=== PATIENT | female | born 1990 | race Caucasian/White ===

== ENCOUNTER 2016-05-28 07:56 | Emergency (ER) | payer OTHER ==
[~2016-05-28] VITALS: Ht 172.7 cm; Wt 77.6 kg
[~2016-05-28 07:56] MED LIST: AZAT50TA10 PO; CERT400K IM; COLE1TAB2 PO; HYDR-3138 PO; INFL100V IV; NORG1TAB6 PO; ONDA4TAB10 PO; OXYC1TAB9 PO; POTA25TA4 PO; PRED20TA PO; VIT B12 IM; [UNRECOGNIZED DRUG - OTHER] INJ
[2016-05-28 08:27] LABS: HEMOGLOBIN 13.2 g/dL (11.7-16.4)
[2016-05-28] MEDS ORDERED: SODIUM CHLORIDE 0.9% 1,000ML IVBOLUS ONE (08:30)
[2016-05-28] MEDS ORDERED: ONDANSETRON 2MG/ML, 2ML IVPush ONE (08:30)
[2016-05-28] MEDS ORDERED: ONDANSETRON 2MG/ML, 2ML ONE (08:35)
[2016-05-28] MEDS ORDERED: HYDROmorphone 1 MG/ML, 1ML ONE ×2 (08:35→09:12)
[2016-05-28] MEDS: HYDROmorphone 1 MG/ML, 1ML IVPush PRN ×2 (08:39→09:15)
[2016-05-28 08:40] LABS: ASPARTATE AMINO TRANSFERASE 18 U/L (15-37); BLOOD UREA NITROGEN 5 mg/dL (7-18)
[2016-05-28 11:19] VITALS: BP 105/66
== END 2016-05-28 11:22 | disposition home or self-care (01) ==
LOC: ED 08:23
DX: N12 Tubulo-interstitial nephritis, not specified as acute or chronic (principal); Z90.49 Acquired absence of other specified parts of digestive tract
CPT/HCPCS: 36415; 80053; 81001; 83690; 84703; 85025; 87086; 96361; 96374; 96375; 96376; 99285; J1170; J2405; J7030

== ENCOUNTER 2016-07-17 03:44 | Emergency (ER) | payer OTHER ==
[~2016-07-17] VITALS: Ht 172.7 cm; Wt 74.9 kg
[2016-07-17] MEDS ORDERED: ACET325T14 PO (04:04)
[2016-07-17] MEDS ORDERED: AMOX1TAB64 PO (04:04)
[2016-07-17] MEDS ORDERED: HYDROmorphone 1 MG/ML, 1ML IV STA (04:14)
[2016-07-17] MEDS ORDERED: HYDROmorphone 1 MG/ML, 1ML ONE (04:21)
[2016-07-17] MEDS ORDERED: ONDANSETRON 2MG/ML, 2ML ONE (04:22)
[2016-07-17] MEDS ORDERED: DEXAMETHASONE 4 MG/ML, 5ML ONE (04:22)
[2016-07-17] MEDS ORDERED: SODIUM CHLORIDE 0.9% 1,000ML IVBOLUS ONE ×2 (04:30→06:00)
[2016-07-17] MEDS ORDERED: DEXAMETHASONE 4 MG/ML, 1ML IV ONE (04:30)
[2016-07-17] MEDS ORDERED: ONDANSETRON 2MG/ML, 2ML IVPush ONE (04:30)
[2016-07-17] MEDS ORDERED: SODIUM CHLORIDE FLUSH 10ML SYR IVF ONE (04:30)
[2016-07-17 05:46] LABS: BLOOD UREA NITROGEN 6 mg/dL (7-18)
[2016-07-17] MEDS ORDERED: POTASSIUM CHLORIDE 20 MEQ TAB.ER.PRT ONE (05:54)
[2016-07-17] MEDS ORDERED: POTASSIUM CHLORIDE 20 MEQ TAB.ER.PRT PO ONE (06:00)
[2016-07-17 07:07] VITALS: BP 109/69
== END 2016-07-17 07:09 | disposition home or self-care (01) ==
LOC: ED 03:58
DX: M13.872 Other specified arthritis, left ankle and foot (principal); M13.871 Other specified arthritis, right ankle and foot; M13.862 Other specified arthritis, left knee; M13.861 Other specified arthritis, right knee; M13.832 Other specified arthritis, left wrist; M13.831 Other specified arthritis, right wrist; K50.90 Crohn's disease, unspecified, without complications
CPT/HCPCS: 36415; 80048; 82040; 85025; 85651; 96361; 96374; 96375; 99284; J1100; J1170; J2405; J7030

== ENCOUNTER 2016-08-06 20:54 | Emergency (ER) | payer OTHER ==
[~2016-08-06] VITALS: Ht 172.7 cm; Wt 75.9 kg
[~2016-08-06 20:54] MED LIST changes: +ACET325T14 PO; +AMOX1TAB64 PO
[2016-08-06] MEDS ORDERED: HYDROmorphone 1 MG/ML, 1ML IVPush PRN (21:00)
[2016-08-06] MEDS ORDERED: SODIUM CHLORIDE 0.9% 1,000ML IVBOLUS ONE (21:00)
[2016-08-06] MEDS ORDERED: SODIUM CHLORIDE FLUSH 10ML SYR IVF ONE (21:00)
[2016-08-06] MEDS ORDERED: ONDANSETRON 2MG/ML, 2ML IVPush ONE (21:00)
[2016-08-06 21:39] LABS: ASPARTATE AMINO TRANSFERASE 19 U/L (15-37); BLOOD UREA NITROGEN 10 mg/dL (7-18)
[2016-08-06] MEDS ORDERED: HYDROmorphone 1 MG/ML, 1ML ONE (22:07)
[2016-08-06] MEDS ORDERED: ONDANSETRON 2MG/ML, 2ML ONE (22:07)
[2016-08-06 22:51] VITALS: BP 120/82
== END 2016-08-06 22:55 | disposition home or self-care (01) ==
LOC: ED 21:35
DX: R10.13 Epigastric pain (principal); K58.9 Irritable bowel syndrome, unspecified; Z88.6 Allergy status to analgesic agent; Z88.2 Allergy status to sulfonamides; Z90.49 Acquired absence of other specified parts of digestive tract
CPT/HCPCS: 36415; 74020; 80053; 81001; 83690; 84703; 85025; 87086; 96361; 96374; 96375; 99285; J1170; J2405; J7030

== ENCOUNTER 2016-11-07 03:55 | Emergency (ER) | payer OTHER ==
[~2016-11-07] VITALS: Ht 172.7 cm; Wt 76.4 kg
[~2016-11-07 03:55] MED LIST changes: -AZAT50TA10 PO; +AZAT50TA20 PO; -HYDR-3138 PO; +HYDR-3237 PO
[2016-11-07] MEDS ORDERED: HYDROmorphone 1 MG/ML, 1ML IM ONE (05:00)
[2016-11-07] MEDS ORDERED: HYDROmorphone 1 MG/ML, 1ML ONE (05:19)
[2016-11-07 05:25] VITALS: BP 122/81
== END 2016-11-07 06:00 | disposition home or self-care (01) ==
LOC: ED 05:54
DX: M13.0 Polyarthritis, unspecified (principal); M25.531 Pain in right wrist; M25.561 Pain in right knee; M25.571 Pain in right ankle and joints of right foot
CPT/HCPCS: 96372; 99283; J1170

== ENCOUNTER 2016-11-12 06:54 | Emergency (ER) | payer OTHER ==
[~2016-11-12] VITALS: Ht 172.7 cm; Wt 73.0 kg
[2016-11-12] MEDS ORDERED: SODIUM CHLORIDE FLUSH 10ML SYR IVF ONE (07:30)
[2016-11-12] MEDS ORDERED: SODIUM CHLORIDE 0.9% 1,000ML IVBOLUS ONE (07:30)
[2016-11-12] MEDS ORDERED: ONDANSETRON 2MG/ML, 2ML IVPush ONE (07:30)
[2016-11-12] MEDS ORDERED: OXYC-302 PO (07:40)
[2016-11-12] MEDS ORDERED: PRED1TAB PO (07:41)
[2016-11-12] MEDS ORDERED: ONDANSETRON 2MG/ML, 2ML ONE (07:44)
[2016-11-12] MEDS ORDERED: HYDROmorphone 2 MG/ML, 1ML ONE (07:44)
[2016-11-12] MEDS: HYDROmorphone 1 MG/ML, 1ML IVPush PRN ×2 (07:52→08:12)
[2016-11-12 07:55] LABS: HEMATOCRIT 35.8 % (34.6-47.8); HEMOGLOBIN 12.1 g/dL (11.7-16.4)
[2016-11-12 08:06] LABS: BLOOD UREA NITROGEN 10 mg/dL (7-18)
[2016-11-12 09:42] VITALS: BP 113/74
== END 2016-11-12 09:44 | disposition home or self-care (01) ==
LOC: ED 08:07
DX: N30.01 Acute cystitis with hematuria (principal)
CPT/HCPCS: 36415; 80048; 81001; 82040; 84703; 85025; 87077; 87086; 87186; 96361; 96374; 96375; 99285; J1170; J2405; J7030

== ENCOUNTER 2016-11-25 08:07 | Emergency (ER) | payer OTHER ==
[~2016-11-25] VITALS: Ht 172.7 cm; Wt 70.9 kg
[~2016-11-25 08:07] MED LIST changes: +OXYC-302 PO; +PRED1TAB PO
[2016-11-25] MEDS ORDERED: HYDROmorphone 1 MG/ML, 1ML ONE ×3 (08:55→11:21)
[2016-11-25] MEDS ORDERED: ONDANSETRON 2MG/ML, 2ML ONE ×2 (08:55→10:05)
[2016-11-25] MEDS ORDERED: SODIUM CHLORIDE 0.9% 1,000ML IVBOLUS ONE (09:00)
[2016-11-25] MEDS ORDERED: ONDANSETRON 2MG/ML, 2ML IVPush ONE ×2 (09:00→10:30)
[2016-11-25] MEDS ORDERED: SODIUM CHLORIDE FLUSH 10ML SYR IVF ONE (09:00)
[2016-11-25 09:13] LABS: HEMOGLOBIN 12.9 g/dL (11.7-16.4); WHITE BLOOD COUNT 12.1 x10^3/uL (3.4-10)
[2016-11-25 09:14] LABS: BLOOD UREA NITROGEN 6 mg/dL (7-18)
[2016-11-25] MEDS: HYDROmorphone 1 MG/ML, 1ML IVPush PRN ×2 (09:16→10:10)
[2016-11-25] MEDS ORDERED: POTASSIUM CHLORIDE 10% 40 MEQ/30 ML UDC PO ONE (09:30)
[2016-11-25] MEDS ORDERED: ONDA4TAB7 PO (09:48)
[2016-11-25] MEDS ORDERED: POTASSIUM CHLORIDE 10% 20 MEQ/15 ML UDC ONE (10:08)
[2016-11-25 11:08] VITALS: BP 113/60
== END 2016-11-25 11:10 | disposition home or self-care (01) ==
LOC: ED 09:05
DX: K50.00 Crohn's disease of small intestine without complications (principal); E86.0 Dehydration; E87.6 Hypokalemia; G89.29 Other chronic pain; Z90.49 Acquired absence of other specified parts of digestive tract
CPT/HCPCS: 36415; 74022; 80048; 82040; 83605; 84703; 85025; 96361; 96374; 96375; 96376; 99285; J1170; J2405; J7030

== ENCOUNTER 2017-01-15 19:43 | Inpatient (IN) | payer OTHER ==
[~2017-01-15] VITALS: Ht 167.6 cm; Wt 74.3 kg
[~2017-01-15 19:43] MED LIST changes: +ONDA4TAB7 PO
[2017-01-15 20:20] LABS: HEMATOCRIT 37.7 % (34.6-47.8); HEMOGLOBIN 12.7 g/dL (11.7-16.4); WHITE BLOOD COUNT 18.7 x10^3/uL (3.4-10)
[2017-01-15 20:26] LABS: ASPARTATE AMINO TRANSFERASE 34 U/L (15-37); BLOOD UREA NITROGEN 5 mg/dL (7-18)
[2017-01-15] MEDS ORDERED: ONDANSETRON 2MG/ML, 2ML ONE (20:26)
[2017-01-15] MEDS ORDERED: HYDROmorphone 1 MG/ML, 1ML ONE ×2 (20:26→21:19)
[2017-01-15] MEDS ORDERED: SODIUM CHLORIDE 0.9% 1,000ML IVBOLUS ONE (20:30)
[2017-01-15] MEDS ORDERED: ONDANSETRON 2MG/ML, 2ML IVPush ONE (20:30)
[2017-01-15] MEDS ORDERED: SODIUM CHLORIDE FLUSH 10ML SYR IVF ONE (20:30)
[2017-01-15 20:37] LABS: PATH.CAST-FLAG NOT PRESENT; SPERM-FLAG NOT PRESENT; SRC-FLAG NOT PRESENT; XTAL-FLAG NOT PRESENT; YLC-FLAG NOT PRESENT
[2017-01-15] MEDS: HYDROmorphone 1 MG/ML, 1ML IVPush PRN ×2 (20:37→21:25)
[2017-01-15 20:38] LABS: DIFF TOTAL CELLS COUNTED 100 CELL DIFF; VERIFY COUNTS? YES
[2017-01-15] MEDS ORDERED: ACETAMINOPHEN 325 MG TABLET PO PRN (22:30)
[2017-01-15] MEDS ORDERED: HYDROmorphone 2 MG/ML, 1ML ONE (22:34)
[2017-01-15] MEDS: HYDROmorphone 2 MG/ML, 1ML IVPush PRN (22:38)
[2017-01-15 22:58] VITALS: BP 128/80
[2017-01-15] MEDS ORDERED: POTASSIUM CHLORIDE 20 MEQ in SODIUM CHLORIDE 0.9% 1,000 ML IV SCH (23:00)
[2017-01-15] MEDS ORDERED: INFL100V IV (23:01)
[2017-01-15] MEDS: OXYcodone/APAP 5/325MG TABLET PO PRN (23:05)
[2017-01-15] MEDS: CEFTRIAXONE PMX 1GM/50ML 50 ML IV SCH (23:31)
[2017-01-16] MEDS: METRONIDAZOLE PMX 500MG/100ML 100 ML IV SCH ×4 (00:25→23:12)
[2017-01-16 00:50] VITALS: BP 108/72
[2017-01-16] MEDS: ONDANSETRON 2MG/ML, 2ML IVPush PRN ×2 (04:16→11:04)
[2017-01-16] MEDS: HYDROmorphone 2 MG/ML, 1ML IVPush PRN ×5 (04:16→23:19)
[2017-01-16 05:07] LABS: HEMATOCRIT 29.8 % (34.6-47.8); HEMOGLOBIN 10.2 g/dL (11.7-16.4); WHITE BLOOD COUNT 10.3 x10^3/uL (3.4-10)
[2017-01-16 05:46] LABS: BLOOD UREA NITROGEN 4 mg/dL (7-18)
[2017-01-16 08:05] VITALS: BP 102/65
[2017-01-16] MEDS: FAMOTIDINE 20 MG TABLET PO SCH ×2 (08:39→21:33)
[2017-01-16] MEDS ORDERED: methylPREDNISolone SOD SUCC 125 MG/2 ML IV ONE (11:00)
[2017-01-16] MEDS ORDERED: OMNIPAQUE 350 MG/ML, 100ML BOTTLE ONE (12:45)
[2017-01-16 13:49] VITALS: BP 122/79
[2017-01-16] MEDS ORDERED: METOCLOPRAMIDE 5 MG/ML, 2ML IVPush PRN (14:00)
[2017-01-16] MEDS: POTASSIUM CHLORIDE 20 MEQ in SODIUM CHLORIDE 0.9% 1,000 ML IV SCH (14:34)
[2017-01-16 19:30] VITALS: BP 115/60
[2017-01-16] MEDS: OXYcodone/APAP 5/325MG TABLET PO PRN (21:33)
[2017-01-16] MEDS: CEFTRIAXONE PMX 1GM/50ML 50 ML IV SCH (22:26)
[2017-01-17 02:35] VITALS: BP 115/72
[2017-01-17 05:00] LABS: HEMATOCRIT 31.8 % (34.6-47.8); HEMOGLOBIN 10.8 g/dL (11.7-16.4); WHITE BLOOD COUNT 11.9 x10^3/uL (3.4-10)
[2017-01-17 05:02] LABS: BLOOD UREA NITROGEN 4 mg/dL (7-18)
[2017-01-17] MEDS: POTASSIUM CHLORIDE 20 MEQ in SODIUM CHLORIDE 0.9% 1,000 ML IV SCH (05:26)
[2017-01-17] MEDS: METRONIDAZOLE PMX 500MG/100ML 100 ML IV SCH ×2 (06:51→13:58)
[2017-01-17 07:14] VITALS: BP 119/77
[2017-01-17] MEDS: FAMOTIDINE 20 MG TABLET PO SCH (08:04)
[2017-01-17] MEDS: ONDANSETRON 2MG/ML, 2ML IVPush PRN (08:41)
[2017-01-17] MEDS: OXYcodone/APAP 5/325MG TABLET PO PRN ×2 (09:41→15:05)
[2017-01-17] MEDS ORDERED: PRED20TA PO (12:54)
[2017-01-17] MEDS ORDERED: AMOX1TAB64 PO (12:54)
[2017-01-17] MEDS ORDERED: CEFTRIAXONE PMX 1GM/50ML 50 ML IV ONE (13:00)
[2017-01-17 13:22] VITALS: BP 115/76
[2017-01-17 15:01] VITALS: BP 118/72
== END 2017-01-17 15:10 | disposition home or self-care (01) | DRG 872 ==
LOC: ED 21:44 → EDIP 21:49 → SUATTDRO 22:06 → 4NOR 22:50
PROVIDERS: ADMIT Emergency Medicine; ATTEND Hospitalist
DX: A41.9 Sepsis, unspecified organism (principal); E44.0 Moderate protein-calorie malnutrition; K50.90 Crohn's disease, unspecified, without complications; N30.90 Cystitis, unspecified without hematuria; G89.29 Other chronic pain; Z83.3 Family history of diabetes mellitus; Z90.49 Acquired absence of other specified parts of digestive tract; Z68.26 Body mass index [BMI] 26.0-26.9, adult; Z88.5 Allergy status to narcotic agent; Z88.2 Allergy status to sulfonamides; Z87.440 Personal history of urinary (tract) infections; Z90.89 Acquired absence of other organs
CPT/HCPCS: 36415; 74020; 74177; 80048; 80053; 81001; 82040; 83690; 83735; 85025; 87046; 87086; 87324; 87899; 89055; 96361; 96374; 96375; 96376; J0696; J1170; J2405; J3480; Q9967; J2765; J2930; J7030

== ENCOUNTER → 2017-02-16 | Outpatient (CLI) | payer OTHER ==
[~2017-02-16] MED LIST changes: +B12 INJECTION IM; +PRED10TA PO
== END ==
LOC: STAR 13:14
PROVIDERS: ATTEND Colon & Rectal Surgery
DX: Z02.9 Encounter for administrative examinations, unspecified (principal)

== ENCOUNTER 2017-02-25 09:20 | Inpatient (IN) | payer OTHER ==
[~2017-02-25] VITALS: Ht 172.7 cm; Wt 80.6 kg
[~2017-02-25 09:20] MED LIST changes: +BUPIVACAINE/PF 0.5% ONE
[2017-02-25] MEDS ORDERED: LACTATED RINGERS 1,000 ML IV SCH (09:30)
[2017-02-25] MEDS ORDERED: ROCURONIUM 10 MG/ML,10ML ONE (10:38)
[2017-02-25] MEDS ORDERED: PROPOFOL 10 MG/ML, 20ML ONE (10:38)
[2017-02-25] MEDS ORDERED: LIDOCAINE-MPF 2% ,5ML ONE (10:38)
[2017-02-25] MEDS ORDERED: MIDAZOLAM 1 MG/ML, 2ML ONE (10:39)
[2017-02-25] MEDS ORDERED: CEFOTETAN PMX 1GM/50ML 50 ML ONE (10:53)
[2017-02-25] MEDS ORDERED: FENTANYL PF 100 MCG/2ML ONE (10:59)
[2017-02-25] MEDS ORDERED: ACETAMINOPHEN 325 MG TABLET PO PRN ×2 (11:00→17:30)
[2017-02-25] MEDS ORDERED: FENTANYL PF 100 MCG/2ML IV PRN (11:00)
[2017-02-25] MEDS ORDERED: HYDROcodone/APAP 7.5-325MG/15ML UDC PO PRN (11:00)
[2017-02-25] MEDS ORDERED: ONDANSETRON 2MG/ML, 2ML IVPush PRN (11:00)
[2017-02-25] MEDS ORDERED: MEPERIDINE/PF 25MG/0.5ML IVPush PRN (11:00)
[2017-02-25] MEDS ORDERED: DEXAMETHASONE 4 MG/ML, 1ML ONE ×2 (11:09)
[2017-02-25] MEDS ORDERED: ONDANSETRON 2MG/ML, 2ML ONE (11:09)
[2017-02-25] MEDS ORDERED: BUPIVACAINE/PF-EPI 0.5% 1:200K INFIL ONE (11:10)
[2017-02-25] MEDS ORDERED: FENTANYL PF 250 MCG/5ML ONE (11:17)
[2017-02-25] MEDS ORDERED: THROMBIN 5,000 UNIT VIAL TP ONE ×2 (11:51→11:55)
[2017-02-25] MEDS ORDERED: GLYCOPYRROLATE 0.2MG/1ML, 5ML ONE (12:27)
[2017-02-25] MEDS ORDERED: NEOSTIGMINE 1 MG/ML, 10ML ONE (12:27)
[2017-02-25] MEDS: HYDROmorphone 1 MG/ML, 1ML IV PRN ×12 (13:00→22:28)
[2017-02-25] MEDS ORDERED: HYDROmorphone 2 MG/ML, 1ML ONE ×6 (13:01→22:23)
[2017-02-25] MEDS ORDERED: OXYcodone 5 MG/5 ML ORAL.SOL UDC ONE (13:17)
[2017-02-25] MEDS ORDERED: KETOROLAC 30 MG/1 ML ONE (13:26)
[2017-02-25] MEDS ORDERED: ACETAMINOPHEN 650 MG/20.3 ML UDC ONE (13:26)
[2017-02-25] MEDS ORDERED: KETOROLAC 30 MG/1 ML IV PRN (13:30)
[2017-02-25] MEDS ORDERED: OXYcodone 5 MG/5 ML ORAL.SOL UDC PO PRN (13:30)
[2017-02-25] MEDS ORDERED: PROMETHAZINE 25 MG/ML, 1ML ONE (14:22)
[2017-02-25] MEDS ORDERED: PROMETHAZINE 25 MG/ML, 1ML IV PRN (14:30)
[2017-02-25] MEDS ORDERED: LORazepam 2 MG/ML, 1ML IV PRN (16:00)
[2017-02-25] MEDS ORDERED: DIPHENHYDRAMINE 25 MG CAPSULE PO PRN (16:00)
[2017-02-25] MEDS ORDERED: DIPHENHYDRAMINE 50 MG/ML, 1ML IV PRN (16:00)
[2017-02-25] MEDS ORDERED: LORazepam 1MG TABLET PO PRN (16:00)
[2017-02-25] MEDS ORDERED: HYDROmorphone 1 MG/ML, 1ML IV PRN (16:00)
[2017-02-25] MEDS ORDERED: ACETAMINOPHEN 650 MG SUPP PR PRN (17:30)
[2017-02-25] MEDS: OXYcodone/APAP 5/325MG TABLET PO PRN (17:36)
[2017-02-25] MEDS: POTASSIUM CHLORIDE 20 MEQ in SODIUM CHLORIDE 0.9% 1,000 ML IV SCH (17:37)
[2017-02-25 19:06] VITALS: BP 107/76
[2017-02-25] MEDS: CEFOTETAN PMX 1GM/50ML 50 ML IVPB SCH (22:29)
[2017-02-25 23:50] VITALS: BP 117/82
[2017-02-26] MEDS ORDERED: HYDROmorphone 2 MG/ML, 1ML ONE ×6 (01:13→22:09)
[2017-02-26] MEDS: HYDROmorphone 1 MG/ML, 1ML IV PRN ×5 (01:16→22:12)
[2017-02-26 03:28] VITALS: BP 119/79
[2017-02-26] MEDS: KETOROLAC 30 MG/1 ML IV PRN ×3 (03:40→19:36)
[2017-02-26] MEDS: OXYcodone/APAP 5/325MG TABLET PO PRN ×2 (03:40→10:04)
[2017-02-26 06:11] LABS: BASOPHILS # (AUTO) 0.05 x10^3/uL (0-0.1); BASOPHILS % (AUTO) 0 % (0-1); EOSINOPHILS # (AUTO) 0.01 x10^3/uL (0-0.4); EOSINOPHILS % (AUTO) 0 % (1-7); LYMPHOCYTES # (AUTO) 1.79 x10^3/uL (1-3.4); LYMPHOCYTES % (AUTO) 13 % (22-44); MD NO; MEAN CORPUSCULAR HEMOGLOBIN 26.1 pg (27.0-34.8); MEAN CORPUSCULAR VOLUME 76.7 fL (80-100); MEAN PLATELET VOLUME 7.5 fL (7.4-10.4); MONOCYTES # (AUTO) 1.38 x10^3/uL (0.2-0.8); MONOCYTES % (AUTO) 10 % (2-9); NEUTROPHILS % (AUTO) 77 % (42-75); PLATELET COUNT 386 x10^3/uL (130-400); RED BLOOD COUNT 3.77 x10^6/uL (3.82-5.3); RED CELL DISTRIBUTION WIDTH 14.1 % (9.6-15.2)
[2017-02-26 06:22] LABS: ANION GAP 9 mmol/L (5-15); CHLORIDE 107 mmol/L (98-107); CREATININE 1.07 mg/dL (0.55-1.02)
[2017-02-26 06:24] LABS: CALCIUM 7.9 mg/dL (8.5-10.1)
[2017-02-26] MEDS: ENOXAPARIN 40 MG/0.4 ML SQ SCH (08:04)
[2017-02-26 08:19] VITALS: BP 101/63
[2017-02-26] MEDS: CEFOTETAN PMX 1GM/50ML 50 ML IVPB SCH (10:04)
[2017-02-26] MEDS ORDERED: MAGNESIUM SULFATE PMX 2GM/50ML 50 ML IVPB ONE (11:00)
[2017-02-26] MEDS ORDERED: POTASSIUM CHLORIDE 40 MEQ in SODIUM CHLORIDE 0.9% 500 ML IV SCH (11:00)
[2017-02-26] MEDS: ONDANSETRON 2MG/ML, 2ML IV PRN ×2 (12:17→22:12)
[2017-02-26 14:47] VITALS: BP 110/71
[2017-02-26] MEDS: POTASSIUM CHLORIDE 20 MEQ in SODIUM CHLORIDE 0.9% 1,000 ML IV SCH (16:39)
[2017-02-26] MEDS: OXYcodone/APAP 10/325MG TABLET PO PRN (19:36)
[2017-02-26 19:41] VITALS: BP 116/81
[2017-02-27] MEDS: OXYcodone/APAP 10/325MG TABLET PO PRN ×2 (04:13→12:30)
[2017-02-27] MEDS: KETOROLAC 30 MG/1 ML IV PRN ×2 (04:13→12:30)
[2017-02-27 04:18] VITALS: BP 110/64
[2017-02-27 05:48] LABS: ANION GAP 7 mmol/L (5-15); CALCIUM 7.7 mg/dL (8.5-10.1); CHLORIDE 109 mmol/L (98-107); CREATININE 0.87 mg/dL (0.55-1.02)
[2017-02-27 05:50] LABS: MEAN CORPUSCULAR HEMOGLOBIN 25.9 pg (27.0-34.8); MEAN CORPUSCULAR HGB CONC 33.8 g/dL (32.4-35.8); MEAN CORPUSCULAR VOLUME 76.7 fL (80-100); MEAN PLATELET VOLUME 7.5 fL (7.4-10.4); PLATELET COUNT 279 x10^3/uL (130-400); RED BLOOD COUNT 2.91 x10^6/uL (3.82-5.3); RED CELL DISTRIBUTION WIDTH 14.5 % (9.6-15.2)
[2017-02-27 06:18] LABS: MD YES
[2017-02-27 06:19] LABS: <PLATELET ESTIMATE> ADEQUATE; <PLT MORPHOLOGY> NORMAL PLT MORPH; BAND#(MANUAL) 0.22 x10^3/uL; BANDS%(MANUAL) 2 % (0-7); LYMPH#(MANUAL) 1.78 x10^3/uL (1-3.4); LYMPHS% (MANUAL) 16 % (22-44); METAMYELOCYTES# (MANUAL) 0.11 x10^3/uL (0-0); METAMYELOCYTES% (MANUAL) 1 % (0-1); MONOS#(MANUAL) 0.78 x10^3/uL (0.3-2.7); MONOS% (MANUAL) 7 % (2-9); SEG#(MANUAL) 8.21 x10^3/uL (1.8-6.8); SEGS% (MANUAL) 74 % (42-75)
[2017-02-27 06:20] LABS: MICROCYTOSIS 1+
[2017-02-27] MEDS ORDERED: HYDROmorphone 2 MG/ML, 1ML ONE (08:41)
[2017-02-27 08:50] VITALS: BP 121/67
[2017-02-27] MEDS: ENOXAPARIN 40 MG/0.4 ML SQ SCH (08:56)
[2017-02-27] MEDS: HYDROmorphone 1 MG/ML, 1ML IV PRN (08:56)
[2017-02-27] MEDS: ONDANSETRON 2MG/ML, 2ML IV PRN (09:48)
[2017-02-27 12:19] VITALS: BP 110/73
== END 2017-02-27 13:15 | disposition home or self-care (01) | DRG 331 ==
LOC: ORIP 09:20 → 4NOR 15:36
PROVIDERS: ADMIT Colon & Rectal Surgery; ATTEND Colon & Rectal Surgery
PROC: 0DTF0ZZ Resection of Right Large Intestine, Open Approach (ICD-10-PCS; principal; 2017-02-25 12:30)
DX: K50.90 Crohn's disease, unspecified, without complications (principal); E83.42 Hypomagnesemia; E87.6 Hypokalemia
CPT/HCPCS: 36415; 80048; 81025; 83735; 85025; 86850; 86900; 88307; J1100; J1170; J1650; J1885; J2250; J2405; J2550; J2704; J2710; J3010; J3480; J3490; J2060; J3475; J7030; J7040; J7120; S0074

== ENCOUNTER 2017-03-04 16:26 | Inpatient (IN) | payer OTHER ==
[~2017-03-04] VITALS: Ht 172.7 cm; Wt 74.8 kg
[~2017-03-04 16:26] MED LIST changes: -BUPIVACAINE/PF 0.5% ONE
[2017-03-04] MEDS ORDERED: ONDANSETRON 2MG/ML, 2ML ONE (16:51)
[2017-03-04] MEDS ORDERED: HYDROmorphone 2 MG/ML, 1ML ONE ×4 (16:51→22:21)
[2017-03-04] MEDS ORDERED: SODIUM CHLORIDE 0.9% 1,000ML IVBOLUS ONE (17:00)
[2017-03-04] MEDS ORDERED: SODIUM CHLORIDE FLUSH 10ML SYR IVF ONE (17:00)
[2017-03-04] MEDS ORDERED: ONDANSETRON 2MG/ML, 2ML IVPush ONE (17:00)
[2017-03-04] MEDS: HYDROmorphone 1 MG/ML, 1ML IVPush PRN ×2 (17:10→18:42)
[2017-03-04 17:16] LABS: BASOPHILS # (AUTO) 0.03 x10^3/uL (0-0.1); BASOPHILS % (AUTO) 0 % (0-1); EOSINOPHILS # (AUTO) 0.16 x10^3/uL (0-0.4); EOSINOPHILS % (AUTO) 2 % (1-7); LYMPHOCYTES % (AUTO) 16 % (22-44); MD NO; MEAN CORPUSCULAR HEMOGLOBIN 26.2 pg (27.0-34.8); MEAN CORPUSCULAR HGB CONC 33.5 g/dL (32.4-35.8); MEAN CORPUSCULAR VOLUME 78.3 fL (80-100); MEAN PLATELET VOLUME 7.6 fL (7.4-10.4); MONOCYTES # (AUTO) 0.69 x10^3/uL (0.2-0.8); MONOCYTES % (AUTO) 7 % (2-9); NEUTROPHILS # (AUTO) 7.63 x10^3/uL (1.8-6.8); NEUTROPHILS % (AUTO) 75 % (42-75); PLATELET COUNT 388 x10^3/uL (130-400); RED CELL DISTRIBUTION WIDTH 15.5 % (9.6-15.2)
[2017-03-04 17:19] LABS: ALANINE AMINOTRANSFERASE 17 U/L (12-78); ALBUMIN 2.8 g/dL (3.4-5.0); ANION GAP 7 mmol/L (5-15); CALCIUM 8.4 mg/dL (8.5-10.1); CHLORIDE 104 mmol/L (98-107); CREATININE 0.73 mg/dL (0.55-1.02)
[2017-03-04 17:23] LABS: ALKALINE PHOSPHATASE 107 U/L (45-117); BILIRUBIN,TOTAL 0.7 mg/dL (0.2-1.0)
[2017-03-04 17:27] LABS: CULTURE INDICATED? YES; MICROSCOPIC INDICATED
[2017-03-04] MEDS ORDERED: OMNIPAQUE 350 MG/ML, 100ML BOTTLE ONE (17:54)
[2017-03-04] MEDS ORDERED: CEFTRIAXONE PMX 1GM/50ML 50 ML ONE (18:23)
[2017-03-04] MEDS ORDERED: CEFTRIAXONE PMX 1GM/50ML 50 ML IV ONE (18:30)
[2017-03-04] MEDS ORDERED: POTASSIUM CHLORIDE 40 MEQ in SODIUM CHLORIDE 0.9% 500 ML IV ONE (18:30)
[2017-03-04 22:15] VITALS: BP 110/74
[2017-03-04] MEDS: OXYcodone/APAP 10/325MG TABLET PO PRN ×2 (23:22→23:51)
[2017-03-04] MEDS ORDERED: HYDROmorphone 1 MG/ML, 1ML IV PRN (23:30)
[2017-03-04] MEDS: D5%-0.9% NACL+KCL 20MEQ 1,000 ML IV SCH (23:51)
[2017-03-04] MEDS: PIPERACILLIN/TAZO/PMX 3.375GM 50 ML IV SCH (23:51)
[2017-03-05] MEDS: ONDANSETRON 2MG/ML, 2ML IV PRN ×3 (00:31→19:32)
[2017-03-05 00:35] VITALS: BP_SYST 106; BP_SYST 95; BP_DIAS 60; BP_DIAS 69
[2017-03-05] MEDS: OXYcodone/APAP 10/325MG TABLET PO PRN ×6 (03:58→21:45)
[2017-03-05 05:23] LABS: MEAN CORPUSCULAR HEMOGLOBIN 26.7 pg (27.0-34.8); MEAN CORPUSCULAR HGB CONC 33.9 g/dL (32.4-35.8); MEAN CORPUSCULAR VOLUME 78.7 fL (80-100); MEAN PLATELET VOLUME 7.3 fL (7.4-10.4); PLATELET COUNT 290 x10^3/uL (130-400); RED BLOOD COUNT 2.69 x10^6/uL (3.82-5.3); RED CELL DISTRIBUTION WIDTH 16.1 % (9.6-15.2)
[2017-03-05 05:30] LABS: ANION GAP 6 mmol/L (5-15); CALCIUM 7.5 mg/dL (8.5-10.1); CHLORIDE 109 mmol/L (98-107); CREATININE 0.69 mg/dL (0.55-1.02)
[2017-03-05] MEDS: PIPERACILLIN/TAZO/PMX 3.375GM 50 ML IV SCH ×2 (05:33→13:33)
[2017-03-05 05:57] LABS: BASOPHILS # (AUTO) 0.02 x10^3/uL (0-0.1); BASOPHILS % (AUTO) 0 % (0-1); EOSINOPHILS # (AUTO) 0.18 x10^3/uL (0-0.4); EOSINOPHILS % (AUTO) 3 % (1-7); LYMPHOCYTES # (AUTO) 1.64 x10^3/uL (1-3.4); LYMPHOCYTES % (AUTO) 25 % (22-44); MD SCAN; MONOCYTES # (AUTO) 0.65 x10^3/uL (0.2-0.8); MONOCYTES % (AUTO) 10 % (2-9); NEUTROPHILS # (AUTO) 4.19 x10^3/uL (1.8-6.8); NEUTROPHILS % (AUTO) 63 % (42-75)
[2017-03-05] MEDS ORDERED: HYDROmorphone 2 MG/ML, 1ML ONE (06:26)
[2017-03-05 06:30] VITALS: BP 107/69
[2017-03-05] MEDS ORDERED: MAGNESIUM SULFATE PMX 2GM/50ML 50 ML IV ONE (09:30)
[2017-03-05] MEDS ORDERED: POTASSIUM CHLORIDE 40 MEQ in SODIUM CHLORIDE 0.9% 500 ML IV ONE (09:30)
[2017-03-05] MEDS: D5%-0.9% NACL+KCL 20MEQ 1,000 ML IV SCH ×2 (12:50→23:47)
[2017-03-05 13:47] VITALS: BP 110/71
[2017-03-05 19:05] VITALS: BP 108/68
[2017-03-05] MEDS ORDERED: PIPERACILLIN/TAZO 3.375 GM in SODIUM CHLORIDE 0.9% 50 ML IV SCH (19:30)
[2017-03-06 01:21] VITALS: BP 105/73
[2017-03-06] MEDS: PIPERACILLIN/TAZO/PMX 3.375GM 50 ML IV SCH ×3 (01:34→13:57)
[2017-03-06] MEDS: OXYcodone/APAP 10/325MG TABLET PO PRN ×3 (01:34→11:23)
[2017-03-06 05:35] LABS: CHLORIDE 110 mmol/L (98-107)
[2017-03-06 05:42] LABS: MEAN CORPUSCULAR HEMOGLOBIN 27.2 pg (27.0-34.8); MEAN CORPUSCULAR HGB CONC 34.2 g/dL (32.4-35.8); MEAN CORPUSCULAR VOLUME 79.3 fL (80-100); MEAN PLATELET VOLUME 7.8 fL (7.4-10.4); PLATELET COUNT 266 x10^3/uL (130-400); RED BLOOD COUNT 2.68 x10^6/uL (3.82-5.3)
[2017-03-06 05:43] LABS: ANION GAP 6 mmol/L (5-15); CALCIUM 7.6 mg/dL (8.5-10.1); CREATININE 0.73 mg/dL (0.55-1.02)
[2017-03-06 06:43] LABS: BASOPHILS # (AUTO) 0.02 x10^3/uL (0-0.1); BASOPHILS % (AUTO) 0 % (0-1); EOSINOPHILS # (AUTO) 0.26 x10^3/uL (0-0.4); EOSINOPHILS % (AUTO) 4 % (1-7); LYMPHOCYTES # (AUTO) 1.47 x10^3/uL (1-3.4); LYMPHOCYTES % (AUTO) 19 % (22-44); MD SCAN; MONOCYTES # (AUTO) 0.59 x10^3/uL (0.2-0.8); MONOCYTES % (AUTO) 8 % (2-9); NEUTROPHILS # (AUTO) 5.25 x10^3/uL (1.8-6.8); NEUTROPHILS % (AUTO) 69 % (42-75)
[2017-03-06 08:58] VITALS: BP 102/66
[2017-03-06] MEDS ORDERED: OXYC-307 PO (10:16)
[2017-03-06] MEDS ORDERED: POTA10TA PO (10:17)
[2017-03-06] MEDS ORDERED: CIPR500T87 PO (10:18)
[2017-03-06] MEDS ORDERED: MAGNESIUM SULFATE PMX 2GM/50ML 50 ML IV ONE (10:30)
[2017-03-06] MEDS ORDERED: POTASSIUM CHLORIDE 40 MEQ in SODIUM CHLORIDE 0.9% 500 ML IV ONE (10:30)
[2017-03-06 13:52] VITALS: BP 96/61
[2017-03-06 15:24] VITALS: BP 100/62
== END 2017-03-06 15:58 | disposition home or self-care (01) | DRG 389 ==
LOC: ED 16:53 → EDIP 20:59 → 4NOR 21:50
PROVIDERS: ADMIT Colon & Rectal Surgery; ATTEND Colon & Rectal Surgery
DX: K56.7 Ileus, unspecified (principal); N39.0 Urinary tract infection, site not specified; K66.8 Other specified disorders of peritoneum; K50.90 Crohn's disease, unspecified, without complications; G89.18 Other acute postprocedural pain; Z83.3 Family history of diabetes mellitus; Z88.5 Allergy status to narcotic agent; Z90.49 Acquired absence of other specified parts of digestive tract
CPT/HCPCS: 36415; 74018; 74176; 74177; 80048; 80053; 81001; 83735; 84703; 85025; 87040; 87086; 96361; 96374; 96375; 96376; J1170; J2405; J2543; J3480; Q9967; J3475; J7030; J7040

== ENCOUNTER 2017-03-23 17:48 | Emergency (ER) | payer OTHER ==
[~2017-03-23] VITALS: Ht 172.7 cm; Wt 78.2 kg
[~2017-03-23 17:48] MED LIST changes: +CIPR500T87 PO; +OXYC-307 PO; +POTA10TA PO
[2017-03-23] MEDS ORDERED: SODIUM CHLORIDE FLUSH 10ML SYR IVF ONE ×2 (18:00→18:30)
[2017-03-23 18:23] LABS: BASOPHILS # (AUTO) 0.01 x10^3/uL (0-0.1); BASOPHILS % (AUTO) 0 % (0-1); EOSINOPHILS # (AUTO) 0.42 x10^3/uL (0-0.4); EOSINOPHILS % (AUTO) 3 % (1-7); LYMPHOCYTES # (AUTO) 1.29 x10^3/uL (1-3.4); LYMPHOCYTES % (AUTO) 8 % (22-44); MD NO; MEAN CORPUSCULAR HEMOGLOBIN 25.3 pg (27.0-34.8); MEAN CORPUSCULAR HGB CONC 32.5 g/dL (32.4-35.8); MEAN CORPUSCULAR VOLUME 77.9 fL (80-100); MEAN PLATELET VOLUME 7.8 fL (7.4-10.4); MONOCYTES # (AUTO) 0.47 x10^3/uL (0.2-0.8); MONOCYTES % (AUTO) 3 % (2-9); NEUTROPHILS # (AUTO) 13.52 x10^3/uL (1.8-6.8); NEUTROPHILS % (AUTO) 86 % (42-75); PLATELET COUNT 464 x10^3/uL (130-400); RED BLOOD COUNT 3.76 x10^6/uL (3.82-5.3); RED CELL DISTRIBUTION WIDTH 16.5 % (9.6-15.2)
[2017-03-23] MEDS ORDERED: SODIUM CHLORIDE 0.9% 1,000 ML IV ONE (18:26)
[2017-03-23] MEDS ORDERED: SODIUM CHLORIDE 0.9% 1,000ML IVBOLUS ONE (18:30)
[2017-03-23 18:35] LABS: ALANINE AMINOTRANSFERASE 55 U/L (12-78); ALBUMIN 2.6 g/dL (3.4-5.0); ANION GAP 9 mmol/L (5-15); CALCIUM 6.8 mg/dL (8.5-10.1); CHLORIDE 103 mmol/L (98-107); CREATININE 0.82 mg/dL (0.55-1.02)
[2017-03-23 18:39] LABS: ALKALINE PHOSPHATASE 84 U/L (45-117); BILIRUBIN,TOTAL 0.3 mg/dL (0.2-1.0); TOTAL PROTEIN 6.7 g/dL (6.4-8.2); TROPONIN I < 0.015 ng/mL (0.000-0.045)
[2017-03-23 19:18] LABS: MICROSCOPIC AUTO
[2017-03-23 19:22] LABS: CULTURE INDICATED? NO
[2017-03-23] MEDS ORDERED: OMNIPAQUE 350 MG/ML, 100ML BOTTLE ONE (19:38)
[2017-03-23] MEDS ORDERED: KETOROLAC 30 MG/1 ML ONE (20:16)
[2017-03-23 20:20] VITALS: BP 121/74
[2017-03-23] MEDS ORDERED: KETOROLAC 30 MG/1 ML IVPush ONE (20:30)
== END 2017-03-23 20:30 | disposition home or self-care (01) ==
LOC: ED 20:24
DX: G89.29 Other chronic pain (principal); R10.84 Generalized abdominal pain; D64.9 Anemia, unspecified; F45.8 Other somatoform disorders; D72.829 Elevated white blood cell count, unspecified; R06.00 Dyspnea, unspecified; Z98.890 Other specified postprocedural states
CPT/HCPCS: 36415; 71045; 71275; 74177; 80053; 81001; 84484; 85025; 85379; 93005; 96361; 96374; 99285; J1885; J7030; Q9967

== ENCOUNTER 2017-09-16 12:24 | Emergency (ER) | payer OTHER ==
[~2017-09-16] VITALS: Ht 172.7 cm; Wt 79.8 kg
[~2017-09-16 12:24] MED LIST changes: +OXYC-432 PO; -OXYC1TAB9 PO
[2017-09-16] MEDS ORDERED: ONDANSETRON 2MG/ML, 2ML IVPush ONE (13:00)
[2017-09-16] MEDS ORDERED: SODIUM CHLORIDE FLUSH 10ML SYR IVF ONE (13:00)
[2017-09-16 13:13] LABS: BASOPHILS # (AUTO) 0.02 x10^3/uL (0-0.1); BASOPHILS % (AUTO) 0 % (0-1); EOSINOPHILS # (AUTO) 0.06 x10^3/uL (0-0.4); EOSINOPHILS % (AUTO) 1 % (1-7); LYMPHOCYTES # (AUTO) 1.71 x10^3/uL (1-3.4); LYMPHOCYTES % (AUTO) 22 % (22-44); MD NO; MEAN CORPUSCULAR HGB CONC 34.1 g/dL (32.4-35.8); MEAN CORPUSCULAR VOLUME 79.2 fL (80-100); MEAN PLATELET VOLUME 8.1 fL (7.4-10.4); MONOCYTES # (AUTO) 0.43 x10^3/uL (0.2-0.8); MONOCYTES % (AUTO) 6 % (2-9); NEUTROPHILS % (AUTO) 72 % (42-75); PLATELET COUNT 268 x10^3/uL (130-400); RED BLOOD COUNT 4.33 x10^6/uL (3.82-5.3); RED CELL DISTRIBUTION WIDTH 13.6 % (9.6-15.2)
[2017-09-16 13:22] LABS: ALANINE AMINOTRANSFERASE 36 U/L (12-78); ALBUMIN 3.4 g/dL (3.4-5.0); ANION GAP 10 mmol/L (5-15); CALCIUM 8.6 mg/dL (8.5-10.1); CHLORIDE 109 mmol/L (98-107); CREATININE 0.84 mg/dL (0.55-1.02)
[2017-09-16 13:27] LABS: ALKALINE PHOSPHATASE 81 U/L (45-117); BILIRUBIN,TOTAL 0.7 mg/dL (0.2-1.0); TOTAL PROTEIN 7.4 g/dL (6.4-8.2)
[2017-09-16] MEDS ORDERED: HYDROmorphone 2 MG/ML, 1ML ONE ×2 (13:33→15:14)
[2017-09-16] MEDS ORDERED: ONDANSETRON 2MG/ML, 2ML ONE (13:33)
[2017-09-16] MEDS: HYDROmorphone 2 MG/ML, 1ML IVPush PRN ×2 (13:38→15:28)
[2017-09-16] MEDS ORDERED: OMNIPAQUE 350 MG/ML, 100ML BOTTLE ONE (14:48)
[2017-09-16 15:28] VITALS: BP 128/79
== END 2017-09-16 16:34 ==
LOC: ED 14:49
DX: K50.00 Crohn's disease of small intestine without complications (principal)
CPT/HCPCS: 36415; 74177; 80053; 83605; 83690; 84703; 85025; 96374; 96375; 96376; 99285; J1170; J2405; Q9967